=== PATIENT | male | born 1980 | race Caucasian/White ===

== ENCOUNTER 2023-01-14 13:35 | Emergency (ER) | payer OTHER, SELFPAY ==
[2023-01-14 13:38] VITALS: BP 165/109; PULSE 105; RESP 14; TEMP 35.8; O2SAT 96; BMI 30.5
--- NOTE | 2023-01-14 14:17 | ED.GENADULT ---
HPI - General Adult General Chief complaint: Extremity Pain/Injury, Lower Stated complaint: R foot pain Time Seen by Provider: 01/14/23 13:42 History of Present Illness HPI narrative: This 42-year-old male comes in with severe pain in the MT joint of his right great toe. He does not report any injury event. His pain started yesterday. He slept poorly last night because of pain in the toe. He states that the pain is worse with any kind of movement or pressure on this area. He states that his father has a history of gout. Related Data Previous Rx's Medication Instructions Recorded ketorolac 10 mg tablet 10 mg PO Q8H 5 days #15 tabs 01/14/23 methylprednisolone 4 mg tablets in See Rx Instructions PO .COMPLEX 01/14/23 a dose pack (Medrol (Neo)) #21 ea tramadol 50 mg tablet 50 mg PO Q6H PRN pain #15 tabs 01/14/23 Allergies Allergy/AdvReac Type Severity Reaction Status Date / Time acetaminophen [From Vicodin] Allergy Unknown Verified 01/14/23 13:38 hydrocodone [From Vicodin] Allergy Unknown Verified 01/14/23 13:38 oxycodone Allergy Unknown Hives Verified 01/14/23 13:38 Review of Systems Status of ROS: Reports: 10 or more systems reviewed and unremarkable except as noted in History and below Narrative: Constitutional: No fevers, no weight gain or loss. Eyes: No discharge. No vision changes. HENT: No congestion, no sore throat, no ear pain. Cardiovascular: No chest pain, no palpitations. Respiratory: No shortness of breath, no wheezes, no cough. Gastrointestinal: No abdominal pain, no vomiting, no diarrhea. Genitourinary: No dysuria, no hematuria. Musculoskeletal: Pain in the right great toe as described above. Skin: No rashes, no pruritis. Neurological: No dizziness, weakness, sensory change, speech change. Endo/Heme/Allergies: No bruising or bleeding. No polydipsia. Pysch: no suicidality, no anxiety, no insomnia. All other systems reviewed and are negative. [facility] Social History Smoking Status: Current every day smoker How often do you have a drink containing alcohol: 2-3 times a week AUDIT-C Alcohol total score: 3 Non-prescribed substance use: denies use Exam Narrative: Exam Narrative: Constitutional: Well-developed, well-nourished, no acute distress. HEENT: Normocephalic, atraumatic. Neck: Normal range of motion. Nontender. Supple. Heart: Intact distal pulses. Lungs: No chest discomfort. No wheezes, rhonchi, or rales. Abdomen: Nontender. Back: Normal range of motion. Extremities: Erythema and very mild swelling in the proximal portion of the right great toe typical of gout. Skin: Intact. No rash. Warm. No erythema or pallor. Neurologic: No altered sensation. No weakness. Alert and oriented. Psychiatric: No suicidality. No anxiety or depression. No insomnia. Nursing notes and vitals signs are reviewed. Const: Vital Signs, click to edit/add: Vital Signs - 24 hr 01/14/23 13:38 Temperature 96.5 F L Pulse Rate [Pulse Oximeter] 105 H Respiratory Rate 14 Blood Pressure [Ri ght Upper Arm] 165/109 H Pulse Oximetry 96 Oxygen Delivery Me thod Room Air Course Vital Signs Vital signs: Initial Vital Signs Temperature 96.5 F L 01/14/23 13:38 Temperature Source Temporal Artery Scan 01/14/23 13:38 Pulse Rate 105 H 01/14/23 13:38 Pulse Rhythm Regular 01/14/23 13:38 Respiratory Rate 14 01/14/23 13:38 Blood Pressure 165/109 H 01/14/23 13:38 Blood Pressure Mean 127 H 01/14/23 13:38 Blood Pressure Position Sitting 01/14/23 13:38 Pulse Oximetry 96 01/14/23 13:38 Oxygen Delivery Method Room Air 01/14/23 13:38 Vital Signs Temperature 96.5 F L 01/14/23 13:38 Pulse Rate 105 H 01/14/23 13:38 Respiratory Rate 14 01/14/23 13:38 Blood Pressure 165/109 H 01/14/23 13:38 Pulse Oximetry 96 01/14/23 13:38 Oxygen Delivery Method Room Air 01/14/23 13:38 Temperature 96.5 F L 01/14/23 13:38 Pulse Rate 105 H 01/14/23 13:38 Respiratory Rate 14 01/14/23 13:38 Blood Pressure 165/109 H 01/14/23 13:38 Pulse Oximetry 96 01/14/23 13:38 Oxygen Delivery Method Room Air 01/14/23 13:38 Medical Decision Making [facility] Narrative Medical decision making narrative: This patient comes in with pain in his right great toe as described above. His symptoms are very suspicious for a flare-up of gout and he does report a family history of gout. I stated diagnostic tools that can be used including checking a uric acid level in his blood which can have false negative results. The definitive diagnosis is by getting fluid from the joint of the toe which is rather painful and sometimes difficult to do. The patient is not showing suspicion for a septic joint and there is no injury event or overuse activity also to explain his symptoms otherwise. He received a prescription for Medrol Dosepak, Toradol, and tramadol. I advised him to research gout and foods that are offensive for recurrent flare up. Discharge Plan Discharge Clinical Impression: Gout Patient Disposition: Home, Self-Care Condition: Unchanged Additional Instructions: Take medication as prescribed and needed. Increase activity as tolerated. Follow up with MD return if worsening. Prescriptions: New tramadol 50 mg tablet 50 mg PO Q6H PRN (Reason: pain) Qty: 15 0RF ketorolac 10 mg tablet 10 mg PO Q8H 5 Days Qty: 15 0RF methylprednisolone [Medrol (Neo)] 4 mg tablets,dose pack See Rx Instructions .ROUTE .COMPLEX Qty: 21 0RF Rx Instructions: orally per package directions Follow Up/Referrals: Darrell Tillman MD [Primary Care Provider] - Stand Alone Forms: [employer] Info Instructions
== END 2023-01-14 14:45 | disposition home or self-care (01) ==
LOC: ED 14:35
PROVIDERS: Emergency Provider Emergency Medicine Emergency Medical Services; PCP Family Medicine
DX: M10.9 Gout, unspecified (principal)
CPT/HCPCS: 99283; 99284

== ENCOUNTER 2023-01-23 13:06 | Outpatient (CLI) | payer OTHER, SELFPAY | END 2023-01-23 13:07 | disposition home or self-care (01) | LOC: LONREF 13:06 | PROVIDERS: PCP Family Medicine; Visit Provider Nurse Practitioner Family | DX: M10.9 Gout, unspecified (principal) | CPT/HCPCS: 84550 ==

== ENCOUNTER 2025-04-05 12:41 | Outpatient (CLI) | payer BC, SELFPAY ==
--- NOTE | 2025-04-05 13:00 | CRLHL7_ITS ---
For Patients: As a result of the Century Cures Act, medical imaging exams and procedure reports are released immediately into your electronic medical record. You may view this report before your referring provider. If you have questions, please contact your health care provider. INDICATION: Neck pain TECHNIQUE: Noncontrast sagittal T1, T2, STIR and axial GRE sequences are provided. No comparisons. FINDINGS: The overall stature, alignment and intrinsic marrow signal of the cervical spine is within normal limits. Cervical cord is normal. C2-3: Unremarkable. C3-4: Asymmetric uncovertebral joint and facet arthropathy results in moderate left and no right foraminal narrowing. No central canal narrowing. C4-5: No central canal or foraminal narrowing. C5-6: Leftward eccentric disc osteophyte complex results in mild to moderate leftward eccentric central canal narrowing. Severe left foraminal narrowing due to asymmetric uncovertebral joint and facet arthropathy. There is likely compression of the exiting left C6 nerve root. No right foraminal narrowing. C6-7: Asymmetric uncovertebral joint and facet arthropathy results in moderate right foraminal narrowing with likely contact of the exiting right C7 nerve root. No central canal or left foraminal narrowing. C7-T1: Unremarkable. IMPRESSION: 1. Mild to moderate leftward eccentric central canal narrowing with severe left foraminal narrowing at C5-6. 2. Moderate right C6-7 foraminal narrowing. 3. Moderate left C3-4 foraminal narrowing. Dictated by Colton Vines MD @ 04/06/2025 2:07:53 PM (Electronically Signed)
== END 2025-04-05 12:42 | disposition home or self-care (01) ==
LOC: MRI 12:42
PROVIDERS: PCP Family Medicine; Visit Provider Family Medicine
DX: M54.2 Cervicalgia (principal); M50.21 Other cervical disc displacement, high cervical region; M50.222 Other cervical disc displacement at C5-C6 level; M50.223 Other cervical disc displacement at C6-C7 level; M54.12 Radiculopathy, cervical region
CPT/HCPCS: 72141